=== PATIENT | male | born 1960 | race Caucasian/White ===

== ENCOUNTER 2018-03-14 07:51 | Day surgery (SDC) | payer BC, OTHER ==
[2018-03-07 10:10] LABS: APPEARANCE,URINE CLEAR; BILIRUBIN,URINE NEGATIVE (NEGATIVE); COLOR,URINE YELLOW; GLUCOSE, URINE >=500 mg/dL (NEGATIVE); KETONES,URINE NEGATIVE (NEGATIVE); LEUKOCYTE ESTERASE,URINE NEGATIVE (NEGATIVE); NITRITE,URINE NEGATIVE (NEGATIVE); PROTEIN,URINE NEGATIVE (NEGATIVE); UROBILINOGEN,URINE NEGATIVE mg/dL (<2.0)
--- NOTE | 2018-03-07 10:17 | RADIOLOGY REPORT (SQ) ---
EXAM DESCRIPTION: CHEST PA/LATERAL COMPLETED DATE/TIME: 03/07/2018 10:09 am REASON FOR STUDY: PRE-OP COMPARISON: None. EXAM PARAMETERS: NUMBER OF VIEWS: two views TECHNIQUE: Digital Frontal and Lateral radiographic views of the chest acquired. RADIATION DOSE: NA LIMITATIONS: none FINDINGS: LUNGS AND PLEURA: No opacities, masses or pneumothorax. No pleural effusion. MEDIASTINUM AND HILAR STRUCTURES: No masses or contour abnormalities. HEART AND VASCULAR STRUCTURES: Heart normal size. No evidence for failure. BONES: No acute findings. HARDWARE: None in the chest. OTHER: No other significant finding. IMPRESSION: NO SIGNIFICANT RADIOGRAPHIC FINDING IN THE CHEST. TECHNICAL DOCUMENTATION: JOB ID: [id number] [employer]- All Rights Reserved Reading location - IP/workstation name: [email or web address]
[2018-03-07 10:24] LABS: HEMATOCRIT 52.7 % (37.9-51.0); HEMOGLOBIN 18.4 g/dL (13.5-17.0); MEAN CORPUSCULAR HEMOGLOBIN 31.2 pg (27.0-33.4); MEAN CORPUSCULAR HGB CONC 34.9 g/dL (32.0-36.0); MEAN CORPUSCULAR VOLUME 89 fl (80-97); PLATELET COUNT 202 10^3/uL (150-450); RED CELL DISTRIBUTION WIDTH 13.3 % (11.5-14.0); WHITE BLOOD COUNT 10.3 10^3/uL (4.0-10.5)
[2018-03-07 10:40] LABS: ANION GAP 15 (5-19); BLOOD UREA NITROGEN 12 mg/dL (7-20); CALCIUM 9.7 mg/dL (8.4-10.2); CARBON DIOXIDE 27 mmol/L (22-30); CHLORIDE 97 mmol/L (98-107); GLUCOSE 255 mg/dL (75-110); POTASSIUM 4.6 mmol/L (3.6-5.0); SODIUM 138.8 mmol/L (137-145)
--- NOTE | 2018-03-07 15:48 | EKG REPORT ---
SEVERITY:- NORMAL ECG - SINUS RHYTHM : Confirmed by: Sridevi Sauer MD 07-Mar-2018 15:47:17
[~2018-03-14 07:51] MED LIST: CEFAZOLIN 2 GM/D5W RTU 2 GM/50 ML RTUPB IV PRN; LACTATED RINGERS 1000 ML IV PRN; LIDOCAINE 0.5% INJ-PF (5 MG/ML) 50 ML SDV SUBCUT PRN; LIDOCAINE 1%/EPINEPHRINE INJ 20 ML VIAL ONE
[2018-03-14] MEDS ORDERED: CEFAZOLIN INJ 1 GM VIAL ONE (08:17)
[2018-03-14] MEDS ORDERED: CLINDAMYCIN 600 MG/D5W RTU 600 MG/50 ML RTUPB IV ONE (08:36)
[2018-03-14] MEDS ORDERED: FENTANYL CITRATE INJ/PF 100 MCG/2 ML AMPUL ONE (08:37)
[2018-03-14] MEDS ORDERED: PROPOFOL INJ 200 MG/20 ML VIAL IV ONE (08:37)
[2018-03-14] MEDS ORDERED: MIDAZOLAM 2 MG/2 ML INJ ONE (08:37)
[2018-03-14] MEDS ORDERED: ONDANSETRON HCL INJ/PF 4 MG/2 ML SDV ONE (08:37)
[2018-03-14] MEDS ORDERED: BUPIVACAINE HCL 0.5 % INJ/PF 30 ML SDV ONE (08:45)
[2018-03-14] MEDS ORDERED: MEPERIDINE HCL/PF INJ 25 MG/1 ML DISP.SYRIN IV PRN (09:16)
[2018-03-14] MEDS ORDERED: MORPHINE SULFATE 10 MG/ML INJ IV PRN (09:16)
[2018-03-14] MEDS ORDERED: DIPHENHYDRAMINE HCL 50 MG/ML VIAL IV PRN (09:16)
[2018-03-14] MEDS ORDERED: FENTANYL CITRATE INJ/PF 100 MCG/2 ML AMPUL IV PRN ×3 (09:16)
[2018-03-14] MEDS ORDERED: PROMETHAZINE HCL INJ 25 MG/1 ML VIAL IV PRN (09:16)
--- NOTE | 2018-03-14 09:33 | Discharge Summary ---
Discharge Summary (SDC) - Discharge Final Diagnosis: Right medial meniscal tear Date of Surgery: 03/14/18 Discharge Date: 03/14/18 Condition: Good Forms: ASU Anesthesia D/C Instruction, Discharge POC-Surgical Service Treatment or Instructions: Removed compressive wrap on Monday. Leave underlying OpSite dressing in place until you return to the office. Prescriptions: Oxycodone HCl/Acetaminophen [Percocet 5-325 mg Tablet] 1 tab PO Q6 PRN #40 tab PRN Reason: Referrals: MAGGIE ZAVALA MD [ACTIVE STAFF] - 03/29/18 9:00 am Discharge Diet: As Tolerated, Regular Respiratory Treatments at Home: Deep Breathing/Coughing Discharge Activity: Activity As Tolerated, Balance Activity w/Rest, No tub bath Home Care Assistance: None Needed Report the Following to Your Physician Immediately: Shortness of Breath, Fever over 101 Degrees, Drainage-Foul Smelling
--- NOTE | 2018-03-14 09:36 | Operative Report ---
Operative Report DATE OF SURGERY: 03/14/18 PREOPERATIVE DIAGNOSIS: Right medial meniscal tear POSTOPERATIVE DIAGNOSIS: Right medial meniscal tear. Chondral lesion medial femoral condyle. ACL tear. Loose body. Lateral meniscal tear. 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 The knee is insufflated with a combination of Marcaine, Xylocaine, and epinephrine. Subsequent medial lateral infrapatellar portals are created for the introduction of arthroscope and debridements mentation. Findings as above. Using combination of basket Dalton , mechanical shaver, electric frequency ablation probe a partial medial meniscectomy was performed from approximately 12:00 to 5:00 on the face of the dial. Of note is a large, 1-1/2 cm, chondral lesion on the weightbearing part of the medial femoral condyle. The cartilage is flaking off and this is debrided using a mechanical shaver to solid underlying tissue. The ACL is next examined and is clearly torn. Edges of this are debrided. A loose body is found over in the anterior lateral compartment of the knee and this is retrieved using a grabber. Lastly a lateral meniscectomy was performed from approximately 6:00 to 10:00 on the face of the dial using mechanical gabriella and electric frequency ablation probe. Instrumentation was removed. Portals reapproximation of the nylon. A sterile compressive dressing was applied. The patient was returned to PACU in satisfactory condition.
[2018-03-14] MEDS: FENTANYL CITRATE INJ/PF 100 MCG/2 ML AMPUL ONE ×2 (09:51→09:56)
[2018-03-14] MEDS ORDERED: ACETAMINOPHEN 1,000 MG/100 ML RTUPB IV ONE ×2 (10:22→11:00)
[2018-03-14] MEDS ORDERED: OXYCODONE-ACETAMINOPHEN 5-325 MG TABLET PO ONE (10:30)
[2018-03-14 15:23] VITALS: BP 125/78
== END 2018-03-14 11:30 | disposition home or self-care (01) ==
LOC: OROUT 07:51
PROVIDERS: ATTEND Orthopaedic Surgery
DX: M23.303 Other meniscus derangements, unspecified medial meniscus, right knee (principal); M23.41 Loose body in knee, right knee; F17.210 Nicotine dependence, cigarettes, uncomplicated; F12.90 Cannabis use, unspecified, uncomplicated; I10 Essential (primary) hypertension; M19.90 Unspecified osteoarthritis, unspecified site; E11.9 Type 2 diabetes mellitus without complications; I25.2 Old myocardial infarction; Z88.1 Allergy status to other antibiotic agents; Z01.818 Encounter for other preprocedural examination; Z79.84 Long term (current) use of oral hypoglycemic drugs; Z79.899 Other long term (current) drug therapy
CPT/HCPCS: 29881; G0289; 1400; 36415; 71046; 80048; 81001; 82962; 83036; 85027; 88304; 88311; 93005; 93010; J0131; J0690; J2250; J2405; J2704; J3010; J3490

== ENCOUNTER 2020-02-09 15:46 | Inpatient (IN) | payer OTHER ==
--- NOTE | 2020-02-09 15:57 | ER Document Report ---
ED Medical Screen (RME) - General Chief Complaint: Abdominal Pain Stated Complaint: ABDOMINAL PAIN Time Seen by Provider: 02/09/20 15:53 Primary Care Provider: PETER,PAOLO [Primary Care Provider] - Follow up as needed Mode of Arrival: Wheelchair Information source: Patient Notes: 59-year-old male presented to ED for lower left abdominal pain is Monday. He states he has had a history of diverticulitis. He states it feels similar to that now. No nausea vomiting or fevers. He states he just has excruciating lower abdominal pain. He states last time he had a bout of diverticulitis was in June. He just returned from [facility]. He has a smoker's cough but no other cough. He does not have any change in sense of smell. The only thing he has is the abdominal pain. I have greeted and performed a rapid initial assessment of this patient. A comprehensive ED assessment and evaluation of the patient, analysis of test results and completion of medical decision making process will be conducted by an additional ED providers. TRAVEL OUTSIDE OF THE [place] IN LAST 30 DAYS: No - HPI Onset: Other Onset/Duration: Waxing and waning - Related Data Allergies/Adverse Reactions: cephalexin [From Keflex] Adverse Reaction (Verified 03/05/18 16:51) RASH, SWELLING Past Medical History - Past Medical History Cardiac Medical History: Reports: Hx Coronary Artery Disease - STENT, Hx Hypertension Denies: Hx Heart Attack Pulmonary Medical History: Denies: Hx Asthma, Hx Bronchitis, Hx COPD, Hx Pneumonia Neurological Medical History: Denies: Hx Cerebrovascular Accident, Hx Seizures Musculoskeltal Medical History: Reports Hx Arthritis - RIGHT KNEE,BACK - Immunizations Hx Diphtheria, Pertussis, Tetanus Vaccination: Yes Doctor's Discharge - Discharge Referrals: [facility] [[facility]] - Follow up as needed
[2020-02-09] MEDS ORDERED: HYDROCODONE/ACETAMINOPHEN 5-325 MG TABLET PO ONE (15:59)
[2020-02-09] MEDS ORDERED: ONDANSETRON 4 MG TAB.RAPDIS PO ONE (15:59)
[2020-02-09 16:37] LABS: ABSOLUTE BASOPHILS # (AUTO) 0.1 10^3/uL (0.0-0.2); ABSOLUTE EOSINOPHILS # (AUTO) 0.1 10^3/uL (0.0-0.6); ABSOLUTE LYMPHOCYTES (AUTO) 1.3 10^3/uL (0.5-4.7); ABSOLUTE MONOCYTES (AUTO) 2.1 10^3/uL (0.1-1.4); ABSOLUTE NEUT (AUTO) 9.8 10^3/uL (1.7-8.2); BASOPHILS % (AUTO) 0.4 % (0-2); EOSINOPHILS % (AUTO) 0.4 % (0-6); HEMATOCRIT 49.5 % (37.9-51.0); HEMOGLOBIN 17.2 g/dL (13.5-17.0); LYMPHOCYTES % (AUTO) 10.1 % (13-45); MEAN CORPUSCULAR HEMOGLOBIN 30.1 pg (27.0-33.4); MEAN CORPUSCULAR HGB CONC 34.8 g/dL (32.0-36.0); MEAN CORPUSCULAR VOLUME 87 fl (80-97); MONOCYTES % (AUTO) 15.7 % (3-13); PLATELET COUNT 199 10^3/uL (150-450); RED BLOOD COUNT 5.72 10^6/uL (4.35-5.55); RED CELL DISTRIBUTION WIDTH 13.7 % (11.5-14.0); SEGMENTED NEUTROPHILS % (AUTO) 73.4 % (42-78); TOTAL CELLS COUNTED % (AUTO) 100 %; WHITE BLOOD COUNT 13.3 10^3/uL (4.0-10.5)
[2020-02-09 16:55] LABS: ALBUMIN 4.3 g/dL (3.5-5.0); ALKALINE PHOSPHATASE 104 U/L (38-126); ANION GAP 11 (5-19); APPEARANCE,URINE CLEAR; ASPARTATE AMINO TRANSFERASE 27 U/L (17-59); BILIRUBIN,DIRECT 0.4 mg/dL (0.0-0.4); BILIRUBIN,TOTAL 1.3 mg/dL (0.2-1.3); BILIRUBIN,URINE NEGATIVE (NEGATIVE); BLOOD UREA NITROGEN 21 mg/dL (7-20); CALCIUM 9.5 mg/dL (8.4-10.2); CARBON DIOXIDE 24 mmol/L (22-30); CHLORIDE 95 mmol/L (98-107); COLOR,URINE YELLOW; GLUCOSE 342 mg/dL (75-110); GLUCOSE, URINE >=500 mg/dL (NEGATIVE); KETONES,URINE TRACE mg/dL (NEGATIVE); LEUKOCYTE ESTERASE,URINE NEGATIVE (NEGATIVE); NITRITE,URINE NEGATIVE (NEGATIVE); POTASSIUM 4.6 mmol/L (3.6-5.0); PROTEIN,URINE 30 mg/dL (NEGATIVE); TOTAL PROTEIN 6.8 g/dL (6.3-8.2); URINE SPECIFIC GRAVITY 1.035
[2020-02-09] MEDS ORDERED: NORMAL SALINE 1000 ML 1,000 ML IV ONE (20:51)
[2020-02-09] MEDS ORDERED: ONDANSETRON HCL INJ/PF 4 MG/2 ML SDV IV ONE (21:10)
[2020-02-09] MEDS ORDERED: HYDROMORPHONE HCL INJ/PF 2 MG/ML AMPULE IV ONE ×2 (21:10→22:50)
--- NOTE | 2020-02-09 21:10 | ER Document Report ---
ED GI/ - General Chief Complaint: Abdominal Pain Stated Complaint: ABDOMINAL PAIN Time Seen by Provider: 02/09/20 15:53 Mode of Arrival: Wheelchair TRAVEL OUTSIDE OF THE [place] IN LAST 30 DAYS: No - HPI Notes: 02/09/20 23:10 Patient is a 59-year-old male with a past medical history of diabetes and hypertension who presents with abdominal pain. Patient states symptoms began on Monday and are worsening. Pain is in the suprapubic area. He denies any diarrhea but states he has had a small amount of hard stool that is nonbloody. No urinary symptoms. No nausea or vomiting. Patient states he does have a decreased appetite. No fevers or chills. He has a history of diverticulitis and normally gets antibiotics. - Related Data Allergies/Adverse Reactions: latex Allergy (Verified 02/09/20 15:58) cephalexin [From Keflex] Adverse Reaction (Verified 02/09/20 15:58) RASH, SWELLING Past Medical History - General Information source: Patient - Social History Smoking Status: Former Smoker Chew tobacco use (# tins/day): No Frequency of alcohol use: None Drug Abuse: None Family History: Reviewed & Not Pertinent - Past Medical History Cardiac Medical History: Reports: Hx Coronary Artery Disease - STENT, Hx Hypertension Denies: Hx Heart Attack Pulmonary Medical History: Denies: Hx Asthma, Hx Bronchitis, Hx COPD, Hx Pneumonia Neurological Medical History: Denies: Hx Cerebrovascular Accident, Hx Seizures Musculoskeletal Medical History: Reports Hx Arthritis - RIGHT KNEE,BACK - Immunizations Hx Diphtheria, Pertussis, Tetanus Vaccination: Yes Review of Systems - Review of Systems Notes: CONSTITUTIONAL: No fever, fatigue or weight loss. SKIN: No rash. HENT: No congestion, ear pain, or sore throat. EYES: No recent vision problems or eye pain. ENDOCRINE: No thyroid problems. No polyuria or polydipsia. CARDIOVASCULAR: No chest pain or edema. RESPIRATORY: No cough, shortness of breath, congestion, or wheezing. GASTROINTESTINAL: Positive for abdominal pain. No nausea or vomiting. GENITOURINARY: No dysuria. MUSCULOSKELETAL: No joint pain or swelling. LYMPHATIC: No swollen glands. NEUROLOGIC: No seizures. No headache, focal weakness or sensory changes. HEMATOLOGIC: No unusual bruising or bleeding. PSYCHIATRIC: No depression or anxiety. Physical Exam - Vital signs Vitals: Temp Pulse Resp BP Pulse Ox 97.7 F 96 20 131/92 H 100 02/09/20 15:53 02/09/20 15:53 02/09/20 15:53 02/09/20 15:53 02/09/20 15:53 - General General appearance: Appears well Notes: VITAL SIGNS: Within normal limits. GENERAL: No acute distress, non-toxic appearance. HEAD: Normal with no signs of head trauma. EYES: EOMI, conjunctiva normal, no discharge. EARS: Hearing grossly intact. NOSE: Normal. THROAT: Oropharynx is normal. NECK: Normal range of motion, no tenderness, supple, no lymphadenopathy, No adenopathy, no JVD. CHEST: Clear breath sounds bilaterally. No wheezes, rales, or rhonchi. CARDIAC: Regular rate and rhythm. S1 and S2, without murmurs, gallops, or rubs. VASCULAR: No Edema. Peripheral pulses normal and equal in all extremities. ABDOMEN: Discomfort to suprapubic palpation. No guarding. GASTROINTESTINAL: Bowel sounds normal GENITOURINARY: Normal, No tenderness LYMPATHTIC: No lymphadenopathy noted. MUSCULOSKELETAL: Good range of motion of all major joints. Extremities without clubbing, cyanosis or edema. NEUROLOGICAL: Alert and oriented x 3. No focal sensory or strength deficits. Speech normal. Follows commands appropriately. PSYCHIATRIC: Normal Affect, judgement and mood. SKIN: Normal appearance with no rashes or lesions. Course - Re-evaluation Re-evalutation: 02/09/20 23:13 Patient has diverticulitis with concern for possible abscess. I did discuss with the on-call surgeon who stated this is not surgical. He recommended patient be admitted to the hospitalist for medical management. I did discuss with the patient and his and they are in agreement. States that pain is significant and he is getting IV pain medication for that. He will also be given Zosyn. I discussed with hospitalist who will admit the patient to his service. 02/10/20 01:05 - Vital Signs Vital signs: Temp Pulse Resp BP Pulse Ox 98.5 F 95 18 138/90 H 95 02/10/20 01:04 02/10/20 01:04 02/10/20 01:04 02/10/20 01:04 02/10/20 01:04 - Laboratory Result Diagrams: 02/09/20 16:04 02/09/20 16:04 Laboratory results interpreted by me: 02/09/20 02/09/20 02/09/20 16:04 16:04 16:04 WBC 13.3 H RBC 5.72 H Hgb 17.2 H Lymph % (Auto) 10.1 L Redwood % (Auto) 15.7 H Absolute Neuts (auto) 9.8 H Absolute Monos (auto) 2.1 H Sodium 130.3 L Chloride 95 L BUN 21 H Glucose 342 H POC Glucose Urine Protein 30 H Urine Glucose (UA) >=500 H Urine Ketones TRACE H Urine Blood SMALL H Urine Urobilinogen 2.0 H 02/09/20 02/09/20 16:16 18:56 WBC RBC Hgb Lymph % (Auto) Redwood % (Auto) Absolute Neuts (auto) Absolute Monos (auto) Sodium Chloride BUN Glucose POC Glucose 365 H 265 H Urine Protein Urine Glucose (UA) Urine Ketones Urine Blood Urine Urobilinogen - Diagnostic Test Radiology reviewed: Image reviewed, Reports reviewed Discharge - Discharge Clinical Impression: Diverticulitis Abdominal pain Qualifiers: Abdominal location: lower abdomen, unspecified Qualified Code(s): R10.30 - Lower abdominal pain, unspecified Condition: Stable Disposition: ADMITTED INPATIENT Admitting Provider: [facility] Unit Admitted: Medical Floor
--- NOTE | 2020-02-09 22:07 | RADIOLOGY REPORT (SQ) ---
CT ABDOMEN PELVIS WITH IV CONTRAST HISTORY: Left lower quadrant pain. COMPARISON: None. TECHNIQUE: CT scan of the abdomen and pelvis was performed with IV contrast. This exam was performed according to our departmental dose-optimization program, which includes automated exposure control, adjustment of the mA and/or kV according to patient size and/or use of iterative reconstruction technique. FINDINGS: The lung bases are clear. No pleural or pericardial effusions. There is no hiatal hernia. There is diffuse hepatic steatosis. The gallbladder, spleen, pancreas, adrenal glands, and kidneys are unremarkable. No urinary stones or hydronephrosis. The pelvic organs are unremarkable. There is diffuse wall thickening with surrounding inflammatory stranding and multiple diverticula within the sigmoid colon. There is suggestion of multiple rim-enhancing fluid collections within the sigmoid wall measuring up to 3.6 x 3.2 cm. The stomach, appendix, and small bowel are normal. There are bilateral pars defects at L5-S1 with grade 1 anterolisthesis. The aorta is normal caliber. Evidence of prior ventral hernia repair. IMPRESSION: 1. Acute sigmoid diverticulitis with phlegmonous changes/abscess within the sigmoid wall. 2. No free air or intraperitoneal abscess is seen.
[2020-02-09] MEDS ORDERED: PIPERACILLIN/TAZOBACTAM 3.375 GM VIAL IV ONE (22:49)
[2020-02-09] MEDS ORDERED: ONDANSETRON HCL INJ/PF 4 MG/2 ML SDV IV PRN (23:59)
[2020-02-10] MEDS ORDERED: DEXTROSE 40% GEL 15 GM TUBE PO PRN ×2 (00:08)
[2020-02-10] MEDS ORDERED: DEXTROSE 50%-WATER 25 GM/50 ML DISP.SYRIN IV PRN ×2 (00:08)
[2020-02-10] MEDS ORDERED: GLUCAGON,HUMAN RECOMB 1 MG INJ IM PRN (00:08)
[2020-02-10] MEDS ORDERED: MORPHINE SULFATE 10 MG/ML INJ IV PRN (00:13)
[2020-02-10] MEDS ORDERED: PIPERACILLIN/TAZOBACTAM 3.375 GM VIAL IV PRN (00:15)
--- NOTE | 2020-02-10 00:19 | PDOC H&P ---
History of Present Illness Admission Date/PCP: [facility] 02/10/2020 Patient complains of: Lower abdominal pain History of Present Illness: RIK ARIZA is a 59 year old male with a history of hypertension and diabetes who presents with a 2 days duration of left lower quadrant abdominal pain which he describes as cramping, 10/10 in intensity at its worst, nonradiating with no clear aggravating or relieving factor. Patient also endorses 2 episodes of vomiting of ingested matter this afternoon. He states that he was treated for diverticulitis about 6 months ago after he presented with similar symptoms. He denies fever, chills, dizziness/lightheadedness, diarrhea, hematemesis, melena or hematochezia. He reports excessive thirst and he states that he feels like his mouth is dry. He denies any dysuria, frequency of urination, urgency. He denies any cough, chest pain, shortness of breath, palpitations. Past Medical History Cardiac Medical History: Reports: Coronary Artery Disease - STENT, Hypertension Denies: Myocardial Infarction Pulmonary Medical History: Denies: Asthma, Bronchitis, Chronic Obstructive Pulmonary Disease (COPD), Pneumonia Neurological Medical History: Denies: Seizures Musculoskeltal Medical History: Reports: Arthritis - RIGHT KNEE,BACK Hematology: Denies: Anemia Social History Information Source: Patient Smoking Status: Former Smoker Electronic Cigarette use?: No Hx Recreational Drug Use: Yes Drugs: Marijuana - Advance Directive Resuscitation Status: Full Code Family History Parental Family History Reviewed: Yes Children Family History Reviewed: Yes Sibling(s) Family History Reviewed.: Yes Medication/Allergy Home Medications: Amlodipine Besylate [Norvasc 10 mg Tablet] 10 mg PO DAILY 03/13/18 Clopidogrel Bisulfate [Plavix] 75 mg PO DAILY 03/13/18 Glipizide [Glipizide Xl] 10 mg PO BID 03/13/18 Lisinopril [Zestril] 40 mg PO DAILY 03/13/18 Pantoprazole Sodium 40 mg PO DAILY 03/13/18 Propranolol HCl [Inderal Xl] 80 mg PO DAILY 03/13/18 Saxagliptin HCl [Onglyza] 5 mg PO DAILY 03/13/18 Oxycodone HCl/Acetaminophen [Percocet 5-325 mg Tablet] 1 tab PO Q6 PRN #40 tab 03/14/18 Allergies/Adverse Reactions: morphine Allergy (Mild, Verified 02/10/20 01:08) itching latex Allergy (Verified 02/09/20 15:58) cephalexin [From Keflex] Adverse Reaction (Verified 02/09/20 15:58) RASH, SWELLING Review of Systems Constitutional: ABSENT: chills, fever(s), headache(s), weight gain, weight loss Eyes: ABSENT: visual disturbances Ears: ABSENT: hearing changes Nose, Mouth, and Throat: ABSENT: as per HPI, headache(s), mouth pain, sore throat, vertigo, other Cardiovascular: ABSENT: chest pain, dyspnea on exertion, edema, orthropnea, palpitations Respiratory: ABSENT: cough, hemoptysis Gastrointestinal: PRESENT: as per HPI Genitourinary: ABSENT: dysuria, hematuria Musculoskeletal: ABSENT: joint swelling Integumentary: ABSENT: rash, wounds Neurological: ABSENT: abnormal gait, abnormal speech, confusion, dizziness, focal weakness, syncope Psychiatric: ABSENT: anxiety, depression, homidical ideation, suicidal ideation Endocrine: ABSENT: cold intolerance, heat intolerance, polydipsia, polyuria Hematologic/Lymphatic: ABSENT: easy bleeding, easy bruising Physical Exam Vital Signs: Temp Pulse Resp BP Pulse Ox 97.8 F 95 17 134/80 H 99 02/09/20 21:20 02/09/20 21:20 02/09/20 21:20 02/09/20 21:20 02/09/20 21:20 Intake & Output 02/08/20 02/09/20 02/10/20 06:59 06:59 06:59 Intake Total 1000 Balance 1000 Weight 89 kg Additional comments: GENERAL APPEARANCE: In no acute distress, alert and oriented x4 HEENT: Normocephalic and atraumatic. No scleral icterus. Moist oral mucosa NECK: Supple. No evidence of thyroid enlargement. No lymphadenopathy or tenderness. No JVD CHEST: Symmetric. Nontender to palpation. LUNGS: Breath sounds are equal and clear bilaterally. No wheezes, rhonchi, or rales. HEART: Regular rate and rhythm with normal S1 and S2. No murmurs, gallops, or rubs. ABDOMEN: Full, soft, positive bowel sounds, mild tenderness on the left lower quadrant area, but no rebound dullness or rigidity EXTREMITIES: No cyanosis, clubbing, or edema. MUSCULOSKELETAL: No deformity, atrophy or swelling noted PSYCHIATRIC: Recent and remote memory is intact. Appropriate mood and affect. SKIN: Warm, dry, and well perfused. No lesions or rashes are noted. NEUROLOGIC: No focal sensory or motor deficits are noted. Results Laboratory Results: 02/09/20 16:04 02/09/20 16:04 02/09/20 02/09/20 02/09/20 16:04 16:04 16:04 WBC 13.3 H RBC 5.72 H Hgb 17.2 H Hct 49.5 MCV 87 MCH 30.1 MCHC 34.8 RDW 13.7 Plt Count 199 Seg Neutrophils % 73.4 Sodium 130.3 L Potassium 4.6 Chloride 95 L Carbon Dioxide 24 Anion Gap 11 BUN 21 H Creatinine 0.88 Est GFR ( Amer) > 60 Glucose 342 H Lactic Acid Calcium 9.5 Total Bilirubin 1.3 AST 27 Alkaline Phosphatase 104 Total Protein 6.8 Albumin 4.3 Urine Color YELLOW Urine Appearance CLEAR Urine pH 5.0 Ur Specific Stella 1.035 Urine Protein 30 H Urine Glucose (UA) >=500 H Urine Ketones TRACE H Urine Blood SMALL H Urine Nitrite NEGATIVE Ur Leukocyte Esterase NEGATIVE Urine WBC (Auto) 1 Urine RBC (Auto) 1 02/09/20 23:04 WBC RBC Hgb Hct MCV MCH MCHC RDW Plt Count Seg Neutrophils % Sodium Potassium Chloride Carbon Dioxide Anion Gap BUN Creatinine Est GFR ( Amer) Glucose Lactic Acid 1.1 Calcium Total Bilirubin AST Alkaline Phosphatase Total Protein Albumin Urine Color Urine Appearance Urine pH Ur Specific Stella Urine Protein Urine Glucose (UA) Urine Ketones Urine Blood Urine Nitrite Ur Leukocyte Esterase Urine WBC (Auto) Urine RBC (Auto) Impressions: Abdomen/Pelvis CT 02/09/20 20:49 IMPRESSION: 1. Acute sigmoid diverticulitis with phlegmonous changes/abscess within the sigmoid wall. 2. No free air or intraperitoneal abscess is seen. Assessment and Plan - Diagnosis (1) Diverticulitis Is this a current diagnosis for this admission?: Yes Plan: Patient presents with lower abdominal pain Has a history of recurrent diverticulitis in the past Has leukocytosis of 13.3k, no other signs of systemic toxicity CT abdomen showed acute sigmoid diverticulitis with phlegmonous change/abscess measuring 3.2 x 3.6 cm but no sign of perforation Surgery on board and recommended medical management Continue Zosyn Kept him n.p.o. 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 Will control pain with as needed Dilaudid Colonoscopy 6 weeks after discharge as outpatient to rule out malignancy (2) Hyperglycemia Is this a current diagnosis for this admission?: Yes Plan: Patient on glipizide and saxagliptin as outpatient We will hold outpatient medication for now Sliding scale, Accu-Chek and hypoglycemia protocol (3) Hyponatremia Is this a current diagnosis for this admission?: Yes Plan: Serum sodium 130, corrected for glucose 134 Likely due to volume depletion from poor oral intake Will optimally controlled blood sugar and hydrate, follow BMP (4) Leukocytosis Is this a current diagnosis for this admission?: Yes Plan: Likely due to diverticulitis Will treat underlying cause (5) Hypertension Is this a current diagnosis for this admission?: Yes Plan: Will resume patient's home medication(amlodipine milligram and lisinopril 40 mg) (6) Diabetes Is this a current diagnosis for this admission?: Yes Plan: Presented with hyperglycemia Ordered A1c for a.m. Sliding scale, Accu-Chek and hypoglycemia protocol - Time Time Spent with patient: 35 or more minutes Total Critical Time (Minutes): 45 Medications reviewed and adjusted accordingly: Yes Anticipated Discharge Disposition: Home, Self Care Anticipated Discharge Timeframe: within 72 hours - Inpatient Certification Medical Necessity: Need Close Monitoring Due to Risk of Patient Decompensation, Need For IV Fluids, Need for IV Antibiotics
[2020-02-10] MEDS: INSULIN REG, HUMAN 100 UNIT/ML 3 ML VIAL (PYX) SUBCUT SCH ×2 (01:16→08:04)
[2020-02-10] MEDS: HYDROMORPHONE HCL INJ/PF 2 MG/ML AMPULE IV PRN ×6 (01:48→20:38)
[2020-02-10] MEDS: NORMAL SALINE 1000 ML 1,000 ML IV PRN ×2 (02:54→13:30)
[2020-02-10] MEDS ORDERED: PIPERACILLIN/TAZOBACTAM 3.375 GM VIAL IV ONE (04:48)
[2020-02-10] MEDS: PIPERACILLIN SODIUM/TAZOBACTAM 3.375 GM in NORMAL SALINE 100 ML IV SCH ×3 (05:38→18:55)
[2020-02-10 07:03] LABS: ABSOLUTE EOSINOPHILS # (AUTO) 0.1 10^3/uL (0.0-0.6); ABSOLUTE LYMPHOCYTES (AUTO) 0.9 10^3/uL (0.5-4.7); ABSOLUTE MONOCYTES (AUTO) 2.3 10^3/uL (0.1-1.4); BASOPHILS % (AUTO) 0.3 % (0-2); EOSINOPHILS % (AUTO) 0.6 % (0-6); HEMATOCRIT 45.1 % (37.9-51.0); HEMOGLOBIN 15.6 g/dL (13.5-17.0); LYMPHOCYTES % (AUTO) 6.9 % (13-45); MEAN CORPUSCULAR HGB CONC 34.6 g/dL (32.0-36.0); MEAN CORPUSCULAR VOLUME 87 fl (80-97); MONOCYTES % (AUTO) 16.9 % (3-13); PLATELET COUNT 154 10^3/uL (150-450); RED BLOOD COUNT 5.21 10^6/uL (4.35-5.55); RED CELL DISTRIBUTION WIDTH 13.6 % (11.5-14.0); SEGMENTED NEUTROPHILS % (AUTO) 75.3 % (42-78); TOTAL CELLS COUNTED % (AUTO) 100 %; WHITE BLOOD COUNT 13.3 10^3/uL (4.0-10.5)
[2020-02-10 07:31] LABS: ANION GAP 12 (5-19); BLOOD UREA NITROGEN 13 mg/dL (7-20); CALCIUM 8.6 mg/dL (8.4-10.2); CARBON DIOXIDE 21 mmol/L (22-30); CHLORIDE 98 mmol/L (98-107); GLUCOSE 191 mg/dL (75-110)
[2020-02-10] MEDS: ENOXAPARIN SODIUM INJ 40 MG/0.4 ML DISP.SYRIN SUBCUT SCH (10:30)
--- NOTE | 2020-02-10 11:31 | PDOC CONSULTATION ---
Consultation Consult Date: 02/10/20 Attending physician:: ASHLEY LEVINE Provider Consulted: [facility] [place] Consult reason:: Complicated diverticulitis History of Present Illness Admission Date/PCP: 02/10/20 00:[facility] History of Present Illness: RIK ARIZA is a 59 year old male Presents emergency department with several day history of abdominal pain, cramping, decreased bowel function. Patient was found to have pelvic tenderness, leukocytosis and CT scan findings consistent with extensive diverticulitis of the sigmoid colon with retrocolonic abscess. Surgery was consulted for management. Patient is admitted to the hospitalist service for hydration, n.p.o. and intravenous antibiotics. Patient has a long history of recurrent diverticulitis, hospitalized several times at [facility]. He has been offered surgical resection but is refused. [facility], showing divert[facility] disease only. Patient lives in [facility], came to [facility] last night because he does not like [facility]. Overnight patient has felt some better. Of note patient has a history of chronic narcotic use. Past Medical History Past Medical History: COPD, diabetes mellitus, smoking history, coronary artery disease with stent placement, chronic pain management sciatica, alcohol abuse, under contract with [facility] for oral and percutaneous injections Cardiac Medical History: Reports: Coronary Artery Disease - STENT, Hypertension Denies: Myocardial Infarction Pulmonary Medical History: Denies: Asthma, Bronchitis, Chronic Obstructive Pulmonary Disease (COPD), Pneumonia Neurological Medical History: Denies: Seizures GI Medical History: Reports: Gastroesophageal Reflux Disease Musculoskeltal Medical History: Reports: Arthritis - RIGHT KNEE,BACK Psychiatric Medical History: Denies: Depression Hematology: Denies: Anemia Past Surgical History Past Surgical History: History of a knee surgery, colonoscopy Social History Information Source: Patient Smoking Status: Former Smoker Electronic Cigarette use?: No Frequency of Alcohol Use: Occasional Hx Recreational Drug Use: Yes Drugs: Marijuana - Advance Directive Resuscitation Status: Full Code Family History Family History: None, Reviewed & Not Pertinent Parental Family History Reviewed: No Children Family History Reviewed: No Sibling(s) Family History Reviewed.: No Medication/Allergy Home Medications: Amlodipine Besylate [Norvasc 10 mg Tablet] 10 mg PO DAILY 03/13/18 Glipizide [Glipizide Xl] 10 mg PO BID 03/13/18 Lisinopril [Zestril] 40 mg PO DAILY 03/13/18 Pantoprazole Sodium 40 mg PO DAILY 03/13/18 Aspirin [Ecotrin 81 mg EC Tablet] 81 mg PO DAILY 02/10/20 Cholecalciferol (Vitamin D3) [Vitamin D3] 125 mcg PO DAILY 02/10/20 Propranolol HCl [Inderal 40 Mg Tablet] 80 mg PO DAILY 02/10/20 Allergies/Adverse Reactions: morphine Allergy (Mild, Verified 02/10/20 01:08) itching latex Allergy (Verified 02/09/20 15:58) cephalexin [From Keflex] Adverse Reaction (Verified 02/09/20 15:58) RASH, SWELLING Review of Systems Constitutional: PRESENT: as per HPI Eyes: PRESENT: other - Disconjugate gaze Cardiovascular: ABSENT: chest pain, dyspnea on exertion, edema, orthropnea, palpitations Respiratory: PRESENT: other - Chronic cough, Genitourinary: ABSENT: dysuria, hematuria Musculoskeletal: PRESENT: other - Chronic back pain Neurological: PRESENT: other - Chronic sciatic symptoms Endocrine: ABSENT: cold intolerance, heat intolerance, polydipsia, polyuria Physical Exam Vital Signs: Temp Pulse Resp BP Pulse Ox 97.6 F 91 22 H 144/89 H 100 02/10/20 07:55 02/10/20 07:55 02/10/20 07:55 02/10/20 07:55 02/10/20 07:55 Intake & Output 02/09/20 02/10/20 02/11/20 06:59 06:59 06:59 Intake Total 1260 Balance 1260 Weight 89.1 kg 89.1 kg General appearance: PRESENT: no acute distress Head exam: PRESENT: normocephalic Eye exam: PRESENT: other - Disconjugate gaze Mouth exam: PRESENT: other - Poor dentition Neck exam: PRESENT: full ROM Respiratory exam: PRESENT: rhonchi Cardiovascular exam: PRESENT: RRR Pulses: PRESENT: normal carotid pulses, normal radial pulses, normal femoral pulses, normal dorsalis pedis pul GI/Abdominal exam: PRESENT: other - Abdomen is soft tender in the suprapubic area to deep palpation, but no rigidity or peritoneal signs. Rectal exam: PRESENT: deferred Extremities exam: PRESENT: full ROM Neurological exam: PRESENT: oriented to person, oriented to place, oriented to time, oriented to situation Psychiatric exam: PRESENT: appropriate affect Results Laboratory Results: 10/26/20 06:00 02/10/20 06:00 02/09/20 02/09/20 02/09/20 16:04 16:04 16:04 WBC 13.3 H RBC 5.72 H Hgb 17.2 H Hct 49.5 MCV 87 MCH 30.1 MCHC 34.8 RDW 13.7 Plt Count 199 Seg Neutrophils % 73.4 Sodium 130.3 L Potassium 4.6 Chloride 95 L Carbon Dioxide 24 Anion Gap 11 BUN 21 H Creatinine 0.88 Est GFR ( Amer) > 60 Glucose 342 H Lactic Acid Calcium 9.5 Total Bilirubin 1.3 AST 27 Alkaline Phosphatase 104 Total Protein 6.8 Albumin 4.3 Urine Color YELLOW Urine Appearance CLEAR Urine pH 5.0 Ur Specific [place] 1.035 Urine Protein 30 H Urine Glucose (UA) >=500 H Urine Ketones TRACE H Urine Blood SMALL H Urine Nitrite NEGATIVE Ur Leukocyte Esterase NEGATIVE Urine WBC (Auto) 1 Urine RBC (Auto) 1 02/09/20 02/10/20 02/10/20 23:04 06:00 06:00 WBC 13.3 H RBC 5.21 Hgb 15.6 Hct 45.1 MCV 87 MCH 30.0 MCHC 34.6 RDW 13.6 Plt Count 154 Seg Neutrophils % 75.3 Sodium 131.4 L Potassium 4.0 Chloride 98 Carbon Dioxide 21 L Anion Gap 12 BUN 13 Creatinine 0.62 Est GFR ( Amer) > 60 Glucose 191 H Lactic Acid 1.1 Calcium 8.6 Total Bilirubin AST Alkaline Phosphatase Total Protein Albumin Urine Color Urine Appearance Urine pH Ur Specific [place] Urine Protein Urine Glucose (UA) Urine Ketones Urine Blood Urine Nitrite Ur Leukocyte Esterase Urine WBC (Auto) Urine RBC (Auto) Impressions: Abdomen/Pelvis CT 02/09/20 20:49 IMPRESSION: 1. Acute sigmoid diverticulitis with phlegmonous changes/abscess within the sigmoid wall. 2. No free air or intraperitoneal abscess is seen. Assessment & Plan - Diagnosis (1) Diverticulitis of large intestine with complication Is this a current diagnosis for this admission?: Yes Plan: Impression: Patient has acute diverticulitis, history of chronic diverticulitis of the sigmoid colon, with retrocolonic pelvic presacral phlegmon. CT scan reviewed; inflammatory phlegmon not amendable to percutaneous drainage. Without peritoneal signs, does not need emergent operation. Documentations: 1. I reviewed patient's history of recurrent diverticular infections, and previous recommendation for him to undergo interval sigmoid colectomy. I agree with that recommendation. Patient is not interested in surgery and is frankly refused it in the past. 2. Ideally patient should undergo a bowel prep, and be offered a single-stage sigmoid resection with primary anastomosis. Again he is not interested. 3. Therefore, in the interim, we will hope that he gets better with IV antibiotics. If he deteriorates, and develops peritonitis, he will need emergent exploration, sigmoid colectomy with colostomy. 4. Since patient is not interested in surgery, we will sign off; reconsult if clinically indicated (6) Abdominal pain Qualifiers: Abdominal location: lower abdomen, unspecified Qualified Code(s): R10.30 - Lower abdominal pain, unspecified (7) Diabetes Is this a current diagnosis for this admission?: Yes
[2020-02-10] MEDS: INSULIN LISPRO 100 UNIT/ML 3 ML VIAL SUBCUT SCH ×2 (12:22→18:59)
--- NOTE | 2020-02-10 13:31 | PDOC PROGRESS REPORT ---
Subjective Progress Note for:: 02/10/20 Subjective:: Patient seen on morning rounds. History of recurrent diverticular infections, with recommendations for surgical intervention which he has repeatedly refused. He complains of lower abdominal pain. He is requesting increase in pain medication. Pt with history of narcotic use. His last bowel movement was 2 days ago. He is currently n.p.o. for bowel rest. He denies fever, chills, dizziness, chest pain, cough, shortness of breath, or diarrhea. Reason For Visit: ACUTE DIVERTICULITIS Physical Exam Vital Signs: Temp Pulse Resp BP Pulse Ox 97.6 F 99 18 125/81 98 02/10/20 10:51 02/10/20 10:51 02/10/20 10:51 02/10/20 10:51 02/10/20 10:51 Intake & Output 02/09/20 02/10/20 02/11/20 06:59 06:59 06:59 Intake Total 1260 Balance 1260 Weight 89.1 kg 89.1 kg General appearance: PRESENT: no acute distress, cooperative, well-developed, well-nourished Head exam: PRESENT: atraumatic, normocephalic Mouth exam: PRESENT: dry mucosa, tongue midline Neck exam: PRESENT: full ROM. ABSENT: tenderness Respiratory exam: PRESENT: clear to auscultation alina, symmetrical, unlabored. ABSENT: retraction, tachypnea, wheezes Cardiovascular exam: PRESENT: RRR, +S1, +S2. ABSENT: diastolic murmur, systolic murmur Pulses: PRESENT: normal radial pulses GI/Abdominal exam: PRESENT: soft, tenderness - Across the lower abdomen.. ABSENT: distended, firm Extremities exam: PRESENT: full ROM. ABSENT: pedal edema Musculoskeletal exam: PRESENT: ambulatory. ABSENT: deformity, dislocation, full ROM Neurological exam: PRESENT: alert, awake, oriented to person, oriented to place, oriented to time, oriented to situation, CN II-XII grossly intact. ABSENT: altered, motor sensory deficit Psychiatric exam: PRESENT: appropriate affect, normal mood Skin exam: PRESENT: dry, intact, warm Results Laboratory Results: 02/10/20 06:00 02/10/20 06:00 02/09/20 02/09/20 02/09/20 16:04 16:04 16:04 WBC 13.3 H RBC 5.72 H Hgb 17.2 H Hct 49.5 MCV 87 MCH 30.1 MCHC 34.8 RDW 13.7 Plt Count 199 Seg Neutrophils % 73.4 Sodium 130.3 L Potassium 4.6 Chloride 95 L Carbon Dioxide 24 Anion Gap 11 BUN 21 H Creatinine 0.88 Est GFR ( Amer) > 60 Glucose 342 H Lactic Acid Calcium 9.5 Total Bilirubin 1.3 AST 27 Alkaline Phosphatase 104 Total Protein 6.8 Albumin 4.3 Urine Color YELLOW Urine Appearance CLEAR Urine pH 5.0 Ur Specific [place] 1.035 Urine Protein 30 H Urine Glucose (UA) >=500 H Urine Ketones TRACE H Urine Blood SMALL H Urine Nitrite NEGATIVE Ur Leukocyte Esterase NEGATIVE Urine WBC (Auto) 1 Urine RBC (Auto) 1 02/09/20 02/10/20 02/10/20 23:04 06:00 06:00 WBC 13.3 H RBC 5.21 Hgb 15.6 Hct 45.1 MCV 87 MCH 30.0 MCHC 34.6 RDW 13.6 Plt Count 154 Seg Neutrophils % 75.3 Sodium 131.4 L Potassium 4.0 Chloride 98 Carbon Dioxide 21 L Anion Gap 12 BUN 13 Creatinine 0.62 Est GFR ( Amer) > 60 Glucose 191 H Lactic Acid 1.1 Calcium 8.6 Total Bilirubin AST Alkaline Phosphatase Total Protein Albumin Urine Color Urine Appearance Urine pH Ur Specific [place] Urine Protein Urine Glucose (UA) Urine Ketones Urine Blood Urine Nitrite Ur Leukocyte Esterase Urine WBC (Auto) Urine RBC (Auto) Impressions: Abdomen/Pelvis CT 02/09/20 20:49 IMPRESSION: 1. Acute sigmoid diverticulitis with phlegmonous changes/abscess within the sigmoid wall. 2. No free air or intraperitoneal abscess is seen. Assessment and Plan - Diagnosis (1) Diverticulitis Is this a current diagnosis for this admission?: Yes Plan: History recurrent diverticulitis. Has refused surgical intervention multiple occasions, including today and discussion with surgery. Leukocytosis of 13.3k. No other signs of systemic toxicity CT abdomen showed acute sigmoid diverticulitis with phlegmonous change/abscess measuring 3.2 x 3.6 cm but no sign of perforation Surgery on board. Note was reviewed. Continue Zosyn Kept him n.p.o. for bowel rest, plan to advance diet tomorrow as tolerated. Will control pain with as needed Dilaudid Colonoscopy 6 weeks after discharge as outpatient to rule out malignancy (2) Leukocytosis Is this a current diagnosis for this admission?: Yes Plan: Likely due to diverticulitis Will treat underlying cause (3) Hyponatremia Is this a current diagnosis for this admission?: Yes Plan: Serum sodium 130, corrected for glucose 134 Likely due to volume depletion from poor oral intake Will optimally controlled blood sugar and hydrate, follow BMP (4) Diabetes Qualifiers: Diabetes mellitus type: type 2 Diabetes mellitus residential insulin use: without wet pour mixer use Diabetes mellitus complication status: without complication Qualified Code(s): E11.9 - Type 2 diabetes mellitus without complications Is this a current diagnosis for this admission?: Yes Plan: Presented with hyperglycemia Heme A1c 10.3, indicating poor glucose control. Patient on glipizide and saxagliptin as outpatient. Consider adjusting pt home regimen prior to discharge. Hold home medications. Sliding scale, Accu-Chek and hypoglycemia protocol. (5) Hyperglycemia Is this a current diagnosis for this admission?: Yes Plan: As above. (6) Hypertension Is this a current diagnosis for this admission?: Yes Plan: Home medications resumed (amlodipine milligram and lisinopril 40 mg) - Time Time Spent with patient: Less than 15 minutes Medications reviewed and adjusted accordingly: Yes Anticipated Discharge Disposition: Home, Self Care Anticipated Discharge Timeframe: within 24 hours
[2020-02-10] MEDS ORDERED: INSULIN GLARGINE,HUM.REC.ANLOG 1,000 UNIT/10 ML VIAL (PYX) SUBCUT ONE ×2 (16:30→19:15)
[2020-02-10] MEDS: PROPRANOLOL HCL 40 MG TABLET PO SCH (22:04)
[2020-02-11] MEDS: INSULIN LISPRO 100 UNIT/ML 3 ML VIAL SUBCUT SCH ×4 (00:19→17:55)
[2020-02-11] MEDS: HYDROMORPHONE HCL INJ/PF 2 MG/ML AMPULE IV PRN ×7 (00:40→22:36)
[2020-02-11] MEDS: PIPERACILLIN SODIUM/TAZOBACTAM 3.375 GM in NORMAL SALINE 100 ML IV SCH ×4 (00:41→18:00)
[2020-02-11] MEDS: NORMAL SALINE 1000 ML 1,000 ML IV PRN ×2 (00:41→13:15)
[2020-02-11] MEDS: PANTOPRAZOLE SODIUM 40 MG TABLET.DR PO SCH (08:26)
[2020-02-11] MEDS ORDERED: (PENDING PHARMACY ID) (Lisinopril [Zestril] 40 MG) PO SCH (10:00)
[2020-02-11] MEDS: ASPIRIN 81 MG TABLET, ENT COATED PO SCH (12:08)
[2020-02-11] MEDS: LISINOPRIL 10 MG TABLET PO SCH (12:10)
[2020-02-11] MEDS: AMLODIPINE BESYLATE 10 MG TABLET PO SCH (12:10)
[2020-02-11] MEDS: ENOXAPARIN SODIUM INJ 40 MG/0.4 ML DISP.SYRIN SUBCUT SCH (12:12)
[2020-02-11] MEDS: INSULIN GLARGINE,HUM.REC.ANLOG 1,000 UNIT/10 ML VIAL SUBCUT SCH (12:20)
[2020-02-11] MEDS: PROPRANOLOL HCL 40 MG TABLET PO SCH ×2 (12:21→21:34)
--- NOTE | 2020-02-11 14:09 | PDOC PROGRESS REPORT ---
Subjective Progress Note for:: 02/11/20 Subjective:: Patient had many questions about his diverticulitis and possible surgical intervention. Reason For Visit: ACUTE DIVERTICULITIS Physical Exam Vital Signs: Temp Pulse Resp BP Pulse Ox 97.8 F 99 20 142/97 H 100 02/11/20 12:02 02/11/20 12:02 02/11/20 12:02 02/11/20 12:02 02/11/20 12:02 Intake & Output 02/10/20 02/11/20 02/12/20 06:59 06:59 06:59 Intake Total 1260 3890 1000 Balance 1260 3890 1000 Weight 89.1 kg 88.8 kg General appearance: PRESENT: cooperative, mild distress, well-developed Eye exam: PRESENT: other - Malfunction of left extraocular muscles. Eye movements not coordinated.. ABSENT: EOMI Respiratory exam: PRESENT: clear to auscultation alina, symmetrical, unlabored. ABSENT: prolonged expiratory phas, rales, rhonchi, tachypnea, wheezes Cardiovascular exam: PRESENT: RRR, +S1, +S2. ABSENT: bradycardia, diastolic m urmur, irregular rhythm, systolic murmur, tachycardia GI/Abdominal exam: PRESENT: hypoactive bowel sounds, soft, tenderness - Left lower quadrant. ABSENT: distended, guarding Rectal exam: PRESENT: deferred Gentrourinary exam: ABSENT: indwelling catheter Extremities exam: ABSENT: pedal edema Musculoskeletal exam: PRESENT: ambulatory, normal inspection. ABSENT: deformity Neurological exam: PRESENT: alert, awake, oriented to person, oriented to place, oriented to time, oriented to situation. ABSENT: altered Psychiatric exam: PRESENT: appropriate affect. ABSENT: agitated, anxious Focused psych exam: ABSENT: delusional, paranoid, restlessness Skin exam: PRESENT: dry, warm. ABSENT: rash Results Laboratory Results: 02/10/20 06:00 02/10/20 06:00 02/09/20 16:04 Clean Catch Midstream Urine Culture - Final NO GROWTH 2 DAYS Impressions: Abdomen/Pelvis CT 02/09/20 20:49 IMPRESSION: 1. Acute sigmoid diverticulitis with phlegmonous changes/abscess within the sigmoid wall. 2. No free air or intraperitoneal abscess is seen. Assessment and Plan - Diagnosis (1) Diverticulitis Is this a current diagnosis for this admission?: Yes Plan: History recurrent diverticulitis. Has refused surgical intervention multiple occasions, including today and discussion with surgery. Leukocytosis of 13.3k. No other signs of systemic toxicity CT abdomen showed acute sigmoid diverticulitis with phlegmonous change/abscess measuring 3.2 x 3.6 cm but no sign of perforation Surgery on board. Note was reviewed. Continue Zosyn Kept him n.p.o. for bowel rest, plan to advance diet tomorrow as tolerated. Will control pain with as needed Dilaudid Colonoscopy 6 weeks after discharge as outpatient to rule out malignancy (2) Diabetes Qualifiers: Diabetes mellitus type: type 2 Diabetes mellitus long term care social worker insulin use: without long term care social worker use Diabetes mellitus complication status: without complication Qualified Code(s): E11.9 - Type 2 diabetes mellitus without complications Is this a current diagnosis for this admission?: Yes Plan: Presented with hyperglycemia Heme A1c 10.3, indicating poor glucose control. Patient on glipizide and saxagliptin as outpatient. Consider adjusting pt home regimen prior to discharge. Hold home medications. Sliding scale, Accu-Chek and hypoglycemia protocol. (3) Hyperglycemia Is this a current diagnosis for this admission?: Yes Plan: As above. (4) Hypertension Is this a current diagnosis for this admission?: Yes Plan: Home medications resumed (amlodipine milligram and lisinopril 40 mg) (5) Hyponatremia Is this a current diagnosis for this admission?: Yes Plan: Serum sodium 130, corrected for glucose 134 Likely due to volume depletion from poor oral intake Will optimally controlled blood sugar and hydrate, follow BMP (6) Leukocytosis Is this a current diagnosis for this admission?: Yes Plan: Likely due to diverticulitis Will treat underlying cause (7) Coronary arteriosclerosis Is this a current diagnosis for this admission?: Yes - Plan Summary Summary: 02/11/2020 Diverticulitis-reviewed with surgery. After I explained his condition to the patient he in fact is amenable to surgical intervention. Surgery will see the patient. There are multiple approaches. I did speak with Dr. English and he is going to see if interventional radiology can at least put a drain to relieve the pressure and evacuate the contents of the abscess initially with subsequent surgery. Continue current antibiotics at this time. No bowel movement since Monday. Will continue to observe and avoid any straining. Hyponatremia-we will continue to improve with correction of glucose. Sodium level is not significantly low. Diabetes mellitus-hemoglobin A1c was 10.3. Patient needs a more regimented treatment plan. Utilizing sliding scale at this time. Will resume glipizide and saxagliptin once his diet resumes. Hypertension-acceptable blood pressures. Continue to monitor closely on current regimen. Coronary artery disease-history of coronary artery disease with stent placement. The patient is not on statin therapy which is surprising considering his CAD and diabetes. Will encourage use of statin at discharge. He is on an SHERIE inhibitor already. Coronary artery disease is quite stable at this time. - Time Time Spent with patient: 25-34 minutes Medications reviewed and adjusted accordingly: Yes Anticipated Discharge Disposition: Unknown Anticipated Discharge Timeframe: Unknown-we will depend on treatment plan for her diverticular abscess
--- NOTE | 2020-02-11 18:12 | EKG REPORT ---
SEVERITY:- BORDERLINE ECG - SINUS RHYTHM PROBABLE LEFT ATRIAL ABNORMALITY : Confirmed by: Devaughn Harrison MD 11-Feb-2020 18:12:13
[2020-02-12] MEDS: INSULIN LISPRO 100 UNIT/ML 3 ML VIAL SUBCUT SCH ×5 (00:07→23:52)
[2020-02-12] MEDS: PIPERACILLIN SODIUM/TAZOBACTAM 3.375 GM in NORMAL SALINE 100 ML IV SCH ×5 (00:08→23:54)
[2020-02-12] MEDS: HYDROMORPHONE HCL INJ/PF 2 MG/ML AMPULE IV PRN ×6 (02:30→23:54)
[2020-02-12] MEDS: NORMAL SALINE 1000 ML 1,000 ML IV PRN ×2 (05:07→23:56)
[2020-02-12 06:11] LABS: ANION GAP 13 (5-19); BLOOD UREA NITROGEN 12 mg/dL (7-20); CALCIUM 9.3 mg/dL (8.4-10.2); CARBON DIOXIDE 24 mmol/L (22-30); CHLORIDE 97 mmol/L (98-107); GLUCOSE 151 mg/dL (75-110); POTASSIUM 4.5 mmol/L (3.6-5.0)
[2020-02-12] MEDS: ASPIRIN 81 MG TABLET, ENT COATED PO SCH (09:36)
[2020-02-12] MEDS: AMLODIPINE BESYLATE 10 MG TABLET PO SCH (09:36)
[2020-02-12] MEDS: ENOXAPARIN SODIUM INJ 40 MG/0.4 ML DISP.SYRIN SUBCUT SCH (09:37)
[2020-02-12] MEDS: LISINOPRIL 10 MG TABLET PO SCH (09:37)
[2020-02-12] MEDS: PROPRANOLOL HCL 40 MG TABLET PO SCH ×2 (09:37→21:18)
[2020-02-12] MEDS: INSULIN GLARGINE,HUM.REC.ANLOG 1,000 UNIT/10 ML VIAL SUBCUT SCH (09:39)
[2020-02-12] MEDS: PANTOPRAZOLE SODIUM 40 MG TABLET.DR PO SCH (09:41)
--- NOTE | 2020-02-12 15:41 | PDOC PROGRESS REPORT ---
Subjective Progress Note for:: 02/12/20 Subjective:: Feeling better. Minimal discomfort but still has a tender area left lower quadrant. He has not moved his bowels but is passing flatus. Reason For Visit: DIVERTICULAR ABSCESS Physical Exam Vital Signs: Temp Pulse Resp BP Pulse Ox 98.4 F 91 18 115/82 98 02/12/20 15:18 02/12/20 15:18 02/12/20 15:18 02/12/20 15:18 02/12/20 15:18 Intake & Output 02/11/20 02/12/20 02/13/20 06:59 06:59 06:59 Intake Total 3890 2920 Output Total 700 500 Balance 3890 2220 -500 Weight 88.8 kg 87.6 kg General appearance: PRESENT: no acute distress, cooperative, well-developed Head exam: PRESENT: atraumatic, normocephalic Eye exam: PRESENT: conjunctiva pink. ABSENT: EOMI, scleral icterus Respiratory exam: PRESENT: clear to auscultation alina, symmetrical, unlabored. ABSENT: prolonged expiratory phas, rales, rhonchi, tachypnea, wheezes Cardiovascular exam: PRESENT: RRR, +S1, +S2. ABSENT: bradycardia, diastolic murmur, irregular rhythm, systolic murmur, tachycardia GI/Abdominal exam: PRESENT: normal bowel sounds, soft, tenderness. ABSENT: distended, guarding Rectal exam: PRESENT: deferred Gentrourinary exam: ABSENT: indwelling catheter Extremities exam: ABSENT: joint swelling, pedal edema Musculoskeletal exam: PRESENT: ambulatory, normal inspection. ABSENT: deformity, dislocation Neurological exam: PRESENT: alert, awake, oriented to person, oriented to place, oriented to time, oriented to situation, CN II-XII grossly intact. ABSENT: altered Psychiatric exam: PRESENT: appropriate affect. ABSENT: agitated, anxious Focused psych exam: ABSENT: delusional, paranoid, restlessness Skin exam: PRESENT: dry, normal color, warm. ABSENT: jaundice, rash Results Laboratory Results: 02/10/20 06:00 02/12/20 05:24 02/12/20 05:24 Sodium 134.1 L Potassium 4.5 Chloride 97 L Carbon Dioxide 24 Anion Gap 13 BUN 12 Creatinine 0.74 Est GFR ( Amer) > 60 Glucose 151 H Calcium 9.3 Impressions: Abdomen/Pelvis CT 02/09/20 20:49 IMPRESSION: 1. Acute sigmoid diverticulitis with phlegmonous changes/abscess within the sigmoid wall. 2. No free air or intraperitoneal abscess is seen. Assessment and Plan - Diagnosis (1) Diverticulitis Is this a current diagnosis for this admission?: Yes (2) Diabetes Qualifiers: Diabetes mellitus type: type 2 Diabetes mellitus fpc insulin use: without fpc use Diabetes mellitus complication status: without complication Qualified Code(s): E11.9 - Type 2 diabetes mellitus without complications Is this a current diagnosis for this admission?: Yes (3) Hyperglycemia Is this a current diagnosis for this admission?: Yes (4) Hypertension Is this a current diagnosis for this admission?: Yes (5) Hyponatremia Is this a current diagnosis for this admission?: Yes (6) Leukocytosis Is this a current diagnosis for this admission?: Yes (7) Coronary arteriosclerosis Is this a current diagnosis for this admission?: Yes - Plan Summary Summary: 02/11/2020 Diverticulitis-reviewed with surgery. After I explained his condition to the patient he in fact is amenable to surgical intervention. Surgery will see the patient. There are multiple approaches. I did speak with Dr. English and he is going to see if interventional radiology can at least put a drain to relieve the pressure and evacuate the contents of the abscess initially with subsequent surgery. Continue current antibiotics at this time. No bowel movement since S unday. Will continue to observe and avoid any straining. Hyponatremia-we will continue to improve with correction of glucose. Sodium level is not significantly low. Diabetes mellitus-hemoglobin A1c was 10.3. Patient needs a more regimented treatment plan. Utilizing sliding scale at this time. Will resume glipizide and saxagliptin once his diet resumes. Hypertension-acceptable blood pressures. Continue to monitor closely on current regimen. Coronary artery disease-history of coronary artery disease with stent placement. The patient is not on statin therapy which is surprising considering his CAD and diabetes. Will encourage use of statin at discharge. He is on an SHERIE inhibitor already. Coronary artery disease is quite stable at this time. 02/12/2020 Patient is passing gas but has not had a bowel movement yet. Will discuss with surgery regarding staged approach. Possible ongoing up patient antibiotics with follow-up for elective surgery versus surgery during this admission. Patient is in fact feeling quite good and so possibly discharged with antibiotics and follow-up with Dr. English Diabetes-reasonable control of glucose. Would benefit from stricter dietary compliance. Hypertension-continue current medications at this time. Add statin therapy. - Time Time Spent with patient: 15-24 minutes Medications reviewed and adjusted accordingly: Yes Anticipated Discharge Disposition: Home, Self Care Anticipated Discharge Timeframe: within 48 hours
[2020-02-13] MEDS: PIPERACILLIN SODIUM/TAZOBACTAM 3.375 GM in NORMAL SALINE 100 ML IV SCH (05:14)
[2020-02-13] MEDS: HYDROMORPHONE HCL INJ/PF 2 MG/ML AMPULE IV PRN ×2 (05:19→08:15)
[2020-02-13] MEDS: INSULIN LISPRO 100 UNIT/ML 3 ML VIAL SUBCUT SCH (07:04)
[2020-02-13] MEDS: PANTOPRAZOLE SODIUM 40 MG TABLET.DR PO SCH (07:44)
--- NOTE | 2020-02-13 09:09 | PDOC PROGRESS REPORT ---
Subjective Progress Note for:: 02/13/20 Subjective:: feels better, had bm Reason For Visit: DIVERTICULAR ABSCESS Physical Exam Vital Signs: Temp Pulse Resp BP Pulse Ox 97.6 F 90 16 125/90 H 100 02/13/20 08:25 02/13/20 07:00 02/13/20 07:00 02/13/20 07:00 02/13/20 07:00 Intake & Output 02/12/20 02/13/20 02/14/20 06:59 06:59 06:59 Intake Total 2920 1638 Output Total 700 800 Balance 2220 838 Weight 87.6 kg 87.3 kg General appearance: PRESENT: no acute distress Head exam: PRESENT: normocephalic Eye exam: PRESENT: EOMI Ear exam: PRESENT: normal external ear exam Mouth exam: PRESENT: moist Teeth exam: PRESENT: poor dentation Neck exam: PRESENT: full ROM Respiratory exam: PRESENT: clear to auscultation alina Cardiovascular exam: PRESENT: RRR Pulses: PRESENT: normal femoral pulses, normal dorsalis pedis pul Vascular exam: PRESENT: normal capillary refill Breast: PRESENT: Normal GI/Abdominal exam: PRESENT: soft Rectal exam: PRESENT: deferred Extremities exam: PRESENT: full ROM Musculoskeletal exam: PRESENT: full ROM Neurological exam: PRESENT: alert, awake, oriented to person, oriented to place Psychiatric exam: PRESENT: appropriate affect Skin exam: PRESENT: dry Results Laboratory Results: 02/10/20 06:00 02/12/20 05:24 Impressions: Abdomen/Pelvis CT 02/09/20 20:49 IMPRESSION: 1. Acute sigmoid diverticulitis with phlegmonous changes/abscess within the sigmoid wall. 2. No free air or intraperitoneal abscess is seen. Assessment & Plan - Time Anticipated Discharge Disposition: Home, Self Care Anticipated Discharge Timeframe: within 24 hours - Plan Summary Plan Summary: Patient was admitted with perforated diverticulitis in sigmoid colon. This is the fourth or fifth bout of perforated diverticulitis for this patient. He was previously refused any surgical intervention. CT scan was reviewed and noted to have a phlegmon in the pelvis as well as some localized smaller abscesses. These are not amenable to this radiologic drainage. Patient has done better in the hospital on IV antibiotics and has had improved well. He now is having return of bowel function and having bowel movements. He is on a clear liquid diet with it being advanced to a soft diet today. It is reasonable for him to be discharged home on a course of Bactrim and Flagyl for 10 days and he will follow-up in surgical clinic. At that time we will obtain a repeat CT scan and if the phlegmon has resolved he will be a candidate for a elective laparoscopic sigmoid colectomy. I have discussed with this patient and he is in agreement with this plan. I have also discussed this with Dr. Falcon. Surgery will sign off for now please reconsult as necessary.
[2020-02-13] MEDS: ASPIRIN 81 MG TABLET, ENT COATED PO SCH (09:11)
[2020-02-13] MEDS: LISINOPRIL 10 MG TABLET PO SCH (09:11)
[2020-02-13] MEDS: AMLODIPINE BESYLATE 10 MG TABLET PO SCH (09:12)
[2020-02-13] MEDS: PROPRANOLOL HCL 40 MG TABLET PO SCH (09:12)
[2020-02-13] MEDS: INSULIN GLARGINE,HUM.REC.ANLOG 1,000 UNIT/10 ML VIAL SUBCUT SCH (09:13)
[2020-02-13] MEDS: ENOXAPARIN SODIUM INJ 40 MG/0.4 ML DISP.SYRIN SUBCUT SCH (09:17)
[2020-02-13 09:51] LABS: ABSOLUTE MONOCYTES (AUTO) 1.9 10^3/uL (0.1-1.4); ABSOLUTE NEUT (AUTO) 9.5 10^3/uL (1.7-8.2); BASOPHILS % (AUTO) 0.3 % (0-2); EOSINOPHILS % (AUTO) 0.4 % (0-6); HEMATOCRIT 49.1 % (37.9-51.0); HEMOGLOBIN 17.1 g/dL (13.5-17.0); MEAN CORPUSCULAR HEMOGLOBIN 30.5 pg (27.0-33.4); MEAN CORPUSCULAR HGB CONC 34.8 g/dL (32.0-36.0); MEAN CORPUSCULAR VOLUME 88 fl (80-97); MONOCYTES % (AUTO) 15.4 % (3-13); PLATELET COUNT 211 10^3/uL (150-450); RED BLOOD COUNT 5.62 10^6/uL (4.35-5.55); RED CELL DISTRIBUTION WIDTH 13.5 % (11.5-14.0); SEGMENTED NEUTROPHILS % (AUTO) 75.9 % (42-78); TOTAL CELLS COUNTED % (AUTO) 100 %; WHITE BLOOD COUNT 12.5 10^3/uL (4.0-10.5)
--- NOTE | 2020-02-13 11:36 | PDOC DISCHARGE SUMMARY ---
Impression - Admit/DC Date/PCP Admission Date/Primary Care Provider: 02/12/20 06:[facility] Discharge Date: 02/13/20 - Discharge Diagnosis (1) Diverticulitis Is this a current diagnosis for this admission?: Yes (2) Diabetes Is this a current diagnosis for this admission?: Yes (3) Hyperglycemia Is this a current diagnosis for this admission?: Yes (4) Hypertension Is this a current diagnosis for this admission?: Yes (5) Hyponatremia Is this a current diagnosis for this admission?: Yes (6) Leukocytosis Is this a current diagnosis for this admission?: Yes (7) Coronary arteriosclerosis Is this a current diagnosis for this admission?: Yes - Assessment Summary: 02/11/2020 Diverticulitis-reviewed with surgery. After I explained his condition to the patient he in fact is amenable to surgical intervention. Surgery will see the patient. There are multiple approaches. I did speak with Dr. English and he is going to see if interventional radiology can at least put a drain to relieve the pressure and evacuate the contents of the abscess initially with subsequent surgery. Continue current antibiotics at this time. No bowel movement since Monday. Will continue to observe and avoid any straining. Hyponatremia-we will continue to improve with correction of glucose. Sodium level is not significantly low. Diabetes mellitus-hemoglobin A1c was 10.3. Patient needs a more regimented treatment plan. Utilizing sliding scale at this time. Will resume glipizide and saxagliptin once his diet resumes. Hypertension-acceptable blood pressures. Continue to monitor closely on current regimen. Coronary artery disease-history of coronary artery disease with stent placement. The patient is not on statin therapy which is surprising considering his CAD and diabetes. Will encourage use of statin at discharge. He is on an SHERIE inhibitor already. Coronary artery disease is quite stable at this time. 02/12/2020 Patient is passing gas but has not had a bowel movement yet. Will discuss with surgery regarding staged approach. Possible ongoing up patient antibiotics with follow-up for elective surgery versus surgery during this admission. Patient is in fact feeling quite good and so possibly discharged with antibiotics and follow-up with Dr. English Diabetes-reasonable control of glucose. Would benefit from stricter dietary compliance. Hypertension-continue current medications at this time. Add statin therapy. - Additional Information Resuscitation Status: Full Code Discharge Diet: Cardiac, Diabetic, Other (Comments) - Full liquid advance to soft mechanical Discharge Activity: Balance Activity w/Rest [facility] [[facility]] - Follow up as needed Prescriptions: Sulfamethoxazole/Trimethoprim [Bactrim Ds Tablet] 1 each PO BID #14 tablet Trazodone HCl [Desyrel 50 mg Tablet] 50 mg PO QHS PRN #30 tablet PRN Reason: Sleep Or Insomnia May Repeat Metronidazole [Flagyl 500 mg Tablet] 500 mg PO TID #21 tablet Metformin HCl 500 mg PO BID 30 Days #60 tablet Home Medications: Amlodipine Besylate [Norvasc 10 mg Tablet] 10 mg PO DAILY 03/13/18 Glipizide [Glipizide Xl] 10 mg PO BID 03/13/18 Lisinopril [Zestril] 40 mg PO DAILY 03/13/18 Pantoprazole Sodium 40 mg PO DAILY 03/13/18 Aspirin [Ecotrin 81 mg EC Tablet] 81 mg PO DAILY 02/10/20 Cholecalciferol (Vitamin D3) [Vitamin D3] 125 mcg PO DAILY 02/10/20 Propranolol HCl [Inderal 40 mg Tablet] 80 mg PO BID 02/10/20 Metformin HCl 500 mg PO BID 30 Days #60 tablet 02/13/20 Metronidazole [Flagyl 500 mg Tablet] 500 mg PO TID #21 tablet 02/13/20 Sulfamethoxazole/Trimethoprim [Bactrim Ds Tablet] 1 each PO BID #14 tablet 02/13/20 Trazodone HCl [Desyrel 50 mg Tablet] 50 mg PO QHS PRN #30 tablet 02/13/20 History of Present Illiness History of Present Illness: RIK ARIZA is a 59 year old male with a history of hypertension and diabetes who presents with a 2 days duration of left lower quadrant abdominal pain which he describes as cramping, 10/10 in intensity at its worst, nonradiating with no clear aggravating or relieving factor. Patient also endorses 2 episodes of vomiting of ingested matter this afternoon. He states that he was treated for diverticulitis about 6 months ago after he presented with similar symptoms. He denies fever, chills, dizziness/lightheadedness, diarrhea, hematemesis, melena or hematochezia. He reports excessive thirst and he states that he feels like his mouth is dry. He denies any dysuria, frequency of urination, urgency. He denies any cough, chest pain, shortness of breath, palpitations. Hospital Course Hospital Course: 1) Diverticulitis Is this a current diagnosis for this admission?: Yes (2) Diabetes Qualifiers: Diabetes mellitus type: type 2 Diabetes mellitus jail insulin use: without intermodal dispatcher use Diabetes mellitus complication status: without complication Qualified Code(s): E11.9 - Type 2 diabetes mellitus without complications Is this a current diagnosis for this admission?: Yes (3) Hyperglycemia Is this a current diagnosis for this admission?: Yes (4) Hypertension Is this a current diagnosis for this admission?: Yes (5) Hyponatremia Is this a current diagnosis for this admission?: Yes (6) Leukocytosis Is this a current diagnosis for this admission?: Yes (7) Coronary arteriosclerosis Is this a current diagnosis for this admission?: Yes - Plan Summary Summary: 02/11/2020 Diverticulitis-reviewed with surgery. After I explained his condition to the patient he in fact is amenable to surgical intervention. Surgery will see the patient. There are multiple approaches. I did speak with Dr. English and he is going to see if interventional radiology can at least put a drain to relieve the pressure and evacuate the contents of the abscess initially with subsequent surgery. Continue current antibiotics at this time. No bowel movement since Monday. Will continue to observe and avoid any straining. Hyponatremia-we will continue to improve with correction of glucose. Sodium level is not significantly low. Diabetes mellitus-hemoglobin A1c was 10.3. Patient needs a more regimented treatment plan. Utilizing sliding scale at this time. Will resume glipizide and saxagliptin once his diet resumes. Hypertension-acceptable blood pressures. Continue to monitor closely on current regimen. Coronary artery disease-history of coronary artery disease with stent placement. The patient is not on statin therapy which is surprising considering his CAD and diabetes. Will encourage use of statin at discharge. He is on an SHERIE inhibitor already. Coronary artery disease is quite stable at this time. 02/12/2020 Patient is passing gas but has not had a bowel movement yet. Will discuss with surgery regarding staged approach. Possible ongoing up patient antibiotics with follow-up for elective surgery versus surgery during this admission. Patient is in fact feeling quite good and so possibly discharged with antibiotics and follow-up with Dr. English Diabetes-reasonable control of glucose. Would benefit from stricter dietary compliance. Hypertension-continue current medications at this time. Add statin therapy. 02/13/2020- White blood cell count is slightly lower. Discussed with surgery. Will discharge on oral antibiotics and follow-up with surgery in 7 to 10 days. Advance diet from full liquid to mechanical soft as tolerated Physical Exam Vital Signs: Temp Pulse Resp BP Pulse Ox 97.6 F 90 16 125/90 H 100 02/13/20 08:25 02/13/20 07:00 02/13/20 07:00 02/13/20 07:00 02/13/20 07:00 Intake & Output 02/12/20 02/13/20 02/14/20 06:59 06:59 06:59 Intake Total 2920 1638 Output Total 700 800 Balance 2220 838 Weight 87.6 kg 87.3 kg General appearance: PRESENT: no acute distress, cooperative, well-developed Respiratory exam: PRESENT: clear to auscultation alina, symmetrical, unlabored. ABSENT: rales, rhonchi, tachypnea, wheezes Cardiovascular exam: PRESENT: RRR, +S1, +S2. ABSENT: bradycardia, diastolic murmur, irregular rhythm, systolic murmur, tachycardia GI/Abdominal exam: PRESENT: normal bowel sounds, soft. ABSENT: distended, guarding, tenderness Rectal exam: PRESENT: deferred Gentrourinary exam: ABSENT: indwelling catheter Neurological exam: PRESENT: alert, awake, oriented to person, oriented to place, oriented to time, oriented to situation, CN II-XII grossly intact - Except extraocular muscles. ABSENT: altered Psychiatric exam: PRESENT: appropriate affect. ABSENT: agitated, anxious Focused psych exam: ABSENT: delusional, paranoid, restlessness Results Laboratory Results: WBC 12.5 10^3/uL (4.0-10.5) H 02/13/20 09:22 RBC 5.62 10^6/uL (4.35-5.55) H 02/13/20 09:22 Hgb 17.1 g/dL (13.5-17.0) H 02/13/20 09:22 Hct 49.1 % (37.9-51.0) 02/13/20 09:22 MCV 88 fl (80-97) 02/13/20 09:22 MCH 30.5 pg (27.0-33.4) 02/13/20 09:22 MCHC 34.8 g/dL (32.0-36.0) 02/13/20 09:22 RDW 13.5 % (11.5-14.0) 02/13/20 09:22 Plt Count 211 10^3/uL (150-450) 02/13/20 09:22 Lymph % (Auto) 8.0 % (13-45) L 02/13/20 09:22 [place] % (Auto) 15.4 % (3-13) H 02/13/20 09:22 Eos % (Auto) 0.4 % (0-6) 02/13/20 09:22 Baso % (Auto) 0.3 % (0-2) 02/13/20 09:22 Absolute Neuts (auto) 9.5 10^3/uL (1.7-8.2) H 02/13/20 09:22 Absolute Lymphs (auto) 1.0 10^3/uL (0.5-4.7) 02/13/20 09:22 Absolute Monos (auto) 1.9 10^3/uL (0.1-1.4) H 02/13/20 09:22 Absolute Eos (auto) 0.0 10^3/uL (0.0-0.6) 02/13/20 09:22 Absolute Basos (auto) 0.0 10^3/uL (0.0-0.2) 02/13/20 09:22 Seg Neutrophils % 75.9 % (42-78) 02/13/20 09:22 Sodium 134.1 mmol/L (137-145) L 02/12/20 05:24 Potassium 4.5 mmol/L (3.6-5.0) 02/12/20 05:24 Chloride 97 mmol/L (98-107) L 02/12/20 05:24 Carbon Dioxide 24 mmol/L (22-30) 02/12/20 05:24 Anion Gap 13 (5-19) 02/12/20 05:24 BUN 12 mg/dL (7-20) 02/12/20 05:24 Creatinine 0.74 mg/dL (0.52-1.25) 02/12/20 05:24 Est GFR ( Amer) > 60 (>60) 02/12/20 05:24 Est GFR (MDRD) Non-Af > 60 (>60) 02/12/20 05:24 Glucose 151 mg/dL (75-110) H 02/12/20 05:24 POC Glucose 179 mg/dL (70-110) H 02/13/20 11:16 Hemoglobin A1c % 10.3 % (4.7-6.0) H 02/10/20 06:00 Lactic Acid 1.1 mmol/L (0.7-2.1) 02/09/20 23:04 Calcium 9.3 mg/dL (8.4-10.2) 02/12/20 05:24 Total Bilirubin 1.3 mg/dL (0.2-1.3) 02/09/20 16:04 Direct Bilirubin 0.4 mg/dL (0.0-0.4) 02/09/20 16:04 Neonat Total Bilirubin Not Reportable 02/09/20 16:04 Neonat Direct Bilirubin Not Reportable 02/09/20 16:04 Neonat Indirect Bili Not Reportable 02/09/20 16:04 AST 27 U/L (17-59) 02/09/20 16:04 ALT 48 U/L (<50) 02/09/20 16:04 Alkaline Phosphatase 104 U/L (38-126) 02/09/20 16:04 Total Protein 6.8 g/dL (6.3-8.2) 02/09/20 16:04 Albumin 4.3 g/dL (3.5-5.0) 02/09/20 16:04 Urine Color YELLOW 02/09/20 16:04 Urine Appearance CLEAR 02/09/20 16:04 Urine pH 5.0 (5.0-9.0) 02/09/20 16:04 Ur Specific Labelle 1.035 02/09/20 16:04 Urine Protein 30 mg/dL (NEGATIVE) H 02/09/20 16:04 Urine Glucose (UA) >=500 mg/dL (NEGATIVE) H 02/09/20 16:04 Urine Ketones TRACE mg/dL (NEGATIVE) H 02/09/20 16:04 Urine Blood SMALL (NEGATIVE) H 02/09/20 16:04 Urine Nitrite NEGATIVE (NEGATIVE) 02/09/20 16:04 Urine Bilirubin NEGATIVE (NEGATIVE) 02/09/20 16:04 Urine Urobilinogen 2.0 mg/dL (<2.0) H 02/09/20 16:04 Ur Leukocyte Esterase NEGATIVE (NEGATIVE) 02/09/20 16:04 Urine WBC (Auto) 1 /HPF 02/09/20 16:04 Urine RBC (Auto) 1 /HPF 02/09/20 16:04 Urine Mucus (Auto) RARE /LPF 02/09/20 16:04 Urine Ascorbic Acid NEGATIVE (NEGATIVE) 02/09/20 16:04 Impressions: Abdomen/Pelvis CT 02/09/20 20:49 IMPRESSION: 1. Acute sigmoid diverticulitis with phlegmonous changes/abscess within the sigmoid wall. 2. No free air or intraperitoneal abscess is seen. Plan Health Concerns: Recurrent diverticular disease now with abscess Plan of Treatment: Complete course of oral antibiotics as an outpatient and follow-up with surgery. Plan for elective surgical intervention. Goals: Removal of diseased portion of sigmoid colon Time Spent: Greater than 30 Minutes Stroke Is this a Stroke Patient?: No Acute Heart Failure Is this a Heart Failure Patient?: No
[2020-02-13 11:38] VITALS: BP 118/90
== END 2020-02-13 12:10 | disposition home or self-care (01) | DRG 392 ==
LOC: ER 15:46 → EH 02-10 00:15 → INTOOBSV 02-10 00:15 → 4S 02-10 01:41 → OBSVTOIN 02-12 06:47
PROVIDERS: ADMIT Student in an Organized Health Care Education/Training Program; ATTEND Hospitalist
DX: K57.20 Diverticulitis of large intestine with perforation and abscess without bleeding (principal); E87.1 Hypo-osmolality and hyponatremia; E11.65 Type 2 diabetes mellitus with hyperglycemia; I10 Essential (primary) hypertension; I25.10 Atherosclerotic heart disease of native coronary artery without angina pectoris; F10.10 Alcohol abuse, uncomplicated; K21.9 Gastro-esophageal reflux disease without esophagitis; Z95.5 Presence of coronary angioplasty implant and graft; Z87.891 Personal history of nicotine dependence; Z88.6 Allergy status to analgesic agent; Z88.1 Allergy status to other antibiotic agents; Z91.040 Latex allergy status; Z79.02 Long term (current) use of antithrombotics/antiplatelets; Z79.891 Long term (current) use of opiate analgesic; Z79.899 Other long term (current) drug therapy
CPT/HCPCS: 36415; 74177; 80048; 80053; 81001; 82962; 83036; 83605; 85025; 87040; 87077; 87086; 87186; 93005; 93010; 96361; 96365; 96375; 96376; 99285; G0378; J1170; J1650; J1815; J2405; J2543; J3490; J7030; J7050; S0119

== ENCOUNTER → 2020-03-05 | Outpatient (CLI) | payer MEDICARE ==
--- NOTE | 2020-03-05 11:29 | RADIOLOGY REPORT (SQ) ---
EXAM DESCRIPTION: CT ABD/PELVIS WITH IV ORAL IMAGES COMPLETED DATE/TIME: 03/05/2020 8:33 am REASON FOR STUDY: K57.92 DVTRCLI OF INTEST, PART UNSP, W/O PERF OR ABSCESS W/O BLEED K57.92 DVTRCLI OF INTEST, PART UNSP, W/O PERF OR ABSCESS W/O COMPARISON: None. TECHNIQUE: CT scan of the abdomen and pelvis performed using helical scanning technique with dynamic intravenous contrast injection. Oral contrast. Images reviewed with lung, soft tissue, and bone win dows. Reconstructed coronal and sagittal MPR images reviewed. Delayed images for evaluation of the ur inary system also acquired. All images stored on PACS. All CT scanners at this facility use dose modulation, iterative reconstruction, and/or weight based d osing when appropriate to reduce radiation dose to as low as reasonably achievable (ALARA). [facility]: Dose Right [facility]: CareDose [facility]: Dose Right [facility]: Teradose 4D [facility]: [employer] CONTRAST TYPE AND DOSE: contrast/concentration: Isovue 350.00 mmol/ml; Total Contrast Delivered: 95. 0 ml; Total Saline Delivered: 37.0 ml RENAL FUNCTION: BUN 12 creatinine 0.74 RADIATION DOSE: CT Rad equipment meets quality standard of care and radiation dose reduction techniq ues were employed. CTDIvol: 13.6 - 13.6 mGy. DLP: 1472 mGy-cm.. LIMITATIONS: None. FINDINGS: LOWER CHEST: No significant findings. No nodules or infiltrates. LIVER: The liver is diffusely hypoattenuating. No masses. SPLEEN: Splenomegaly. The splenic index is 840. PANCREAS: No masses. No significant calcifications. No adjacent inflammation or peripancreatic fluid collections. Pancreatic duct not dilated. GALLBLADDER: No identified stones by CT criteria. No inflammatory changes to suggest cholecystitis. ADRENAL GLANDS: No significant masses or asymmetry. RIGHT KIDNEY AND URETER: No solid masses. No significant calcifications. No hydronephrosis or hyd roureter. LEFT KIDNEY AND URETER: No solid masses. No significant calcifications. No hydronephrosis or hydr oureter. AORTA AND VESSELS: No aneurysm. No dissection. Renal arteries, SMA, celiac without stenosis. RETROPERITONEUM: No retroperitoneal adenopathy, hemorrhage or masses. BOWEL AND PERITONEAL CAVITY: Extensive sigmoid diverticulosis with no associated acute inflammation. Diverticula are seen arising from the cecum. APPENDIX: Normal. PELVIS: There is some thickening of the wall of the bladder. ABDOMINAL WALL: No masses. No hernias. BONES: No significant or acute findings. OTHER: No other significant finding. IMPRESSION: 1. Hepatic steatosis. 2. Splenomegaly. 3. Extensive diverticulosis coli with no evidence of diverticulitis. 4. There is thickening of the bladder wall. Correlate for cystitis. TECHNICAL DOCUMENTATION: JOB ID: [id number] Quality ID # [id number]: Final reports with documentation of one or more dose reduction techniques (e.g., Au tomated exposure control, adjustment of the mA and/or kV according to patient size, use of iterative reconstruction technique) 2010 [employer]- All Rights Reserved Reading location - IP/workstation name: [email or web address]
== END ==
LOC: RAD 07:54
PROVIDERS: ATTEND Surgery
DX: K57.92 Diverticulitis of intestine, part unspecified, without perforation or abscess without bleeding (principal); K76.0 Fatty (change of) liver, not elsewhere classified; R16.1 Splenomegaly, not elsewhere classified
CPT/HCPCS: 74177

== ENCOUNTER 2020-04-02 10:06 | Day surgery (SDC) | payer MEDICARE ==
[2020-03-30 09:44] LABS: HEMOGLOBIN 16.2 g/dL (13.5-17.0); MEAN CORPUSCULAR HEMOGLOBIN 30.5 pg (27.0-33.4); MEAN CORPUSCULAR HGB CONC 34.4 g/dL (32.0-36.0); MEAN CORPUSCULAR VOLUME 89 fl (80-97); PLATELET COUNT 172 10^3/uL (150-450); RED BLOOD COUNT 5.29 10^6/uL (4.35-5.55); RED CELL DISTRIBUTION WIDTH 14.9 % (11.5-14.0); WHITE BLOOD COUNT 7.3 10^3/uL (4.0-10.5)
[~2020-04-02 10:06] MED LIST changes: -CEFAZOLIN 2 GM/D5W RTU 2 GM/50 ML RTUPB IV PRN; -LIDOCAINE 0.5% INJ-PF (5 MG/ML) 50 ML SDV SUBCUT PRN; -LIDOCAINE 1%/EPINEPHRINE INJ 20 ML VIAL ONE
[2020-04-02] MEDS ORDERED: LIDOCAINE 2% INJ-PF (20 MG/ML) 10 ML AMPUL ONE (12:22)
[2020-04-02] MEDS ORDERED: PROPOFOL INJ 200 MG/20 ML VIAL IV ONE ×4 (12:22→13:36)
--- NOTE | 2020-04-02 13:51 | Operative Report ---
Nonrecallable Operative Report DATE OF SURGERY: 04/02/20 PREOPERATIVE DIAGNOSIS: recurrent diverticulitis POSTOPERATIVE DIAGNOSIS: same OPERATION: Colonoscopy. SURGEON: ADRIÁN BHATTI ANESTHESIA: Moderate Sedation TISSUE REMOVED OR ALTERED: None no biopsies COMPLICATIONS: None INTRAOPERATIVE FINDINGS: See note PROCEDURE: Patient was brought to the operating awake alert in stable condition placed on the operative left lateral decubitus position and given IV sedation. After appropriate timeout and site verification the procedure commenced. Lupus colonoscope was passed into the patient's rectum and traversed to rectum to the sigmoid colon as we traversed the sigmoid colon we noted multiple diverticula. At approximately 40 cm appeared to be a narrowing however the scope was able to be passed by that area into the descending colon we then continued to continue to the transverse colon we able to traverse the transverse colon to the hepatic flexure descending colon and cecum. There was no evidence of any mucosal abnormalities or polyps noted. We then slowly withdrew the scope through the ascending colon which appeared to be normal as well as the hepatic flexure and transverse colon. Upon reaching the splenic flexure we started noting multiple diverticuli at about 60 cm from the anal verge at 40 cm from the anal verge we noted narrowing of the colon and poor distention there was moderate mount of stool within the proximal colon. The scope was then slowly withdrawn. Impression moderate to severe diverticulosis. Narrowing a minute or mild stricture at about 40 cm. No evidence of any mucosal abnormalities masses or polyps. Patient will follow-up in surgical clinic in 7 to 10 days.
[2020-04-02] MEDS ORDERED: ONDANSETRON HCL INJ/PF 4 MG/2 ML SDV ONE (14:40)
[2020-04-02] MEDS ORDERED: HYDROMORPHONE HCL INJ/PF 2 MG/ML AMPULE ONE (14:40)
[2020-04-02] MEDS ORDERED: ONDANSETRON HCL INJ/PF 4 MG/2 ML SDV IV ONE (14:45)
[2020-04-02] MEDS ORDERED: HYDROMORPHONE HCL INJ/PF 2 MG/ML AMPULE IV ONE (15:00)
--- NOTE | 2020-04-02 15:32 | RADIOLOGY REPORT (SQ) ---
EXAM DESCRIPTION: KUB/ABDOMEN (SINGLE VIEW) IMAGES COMPLETED DATE/TIME: 04/02/2020 3:08 pm REASON FOR STUDY: POST-PROCEDURE K63.1 PERFORATION OF INTESTINE (NONTRAUMATIC) COMPARISON: None. NUMBER OF VIEWS: One view. TECHNIQUE: Supine radiographic image of the abdomen acquired. LIMITATIONS: None. FINDINGS: BOWEL GAS PATTERN: Status post procedure. Mild to moderate gaseous distention from the c ecum to the splenic flexure of the colon, likely related to prior procedure. Gas is identified throu ghout the colon and in the rectum. CALCIFICATIONS: No suspicious calcifications. SOFT TISSUES: No gross mass or suggestion of organomegaly. HARDWARE: Prior hernia repair with multiple surgical anchors. BONES: No acute fracture. No worrisome bone lesions. OTHER: No other significant finding. IMPRESSION: 1. Status post procedure with mild to moderate gaseous distention from the cecum to the splenic flexure of the colon. TECHNICAL DOCUMENTATION: JOB ID: [id number] 2010 [employer]- All Rights Reserved Reading location - IP/workstation name: [email or web address]
--- NOTE | 2020-04-02 15:33 | RADIOLOGY REPORT (SQ) ---
EXAM DESCRIPTION: CHEST SINGLE VIEW IMAGES COMPLETED DATE/TIME: 04/02/2020 3:08 pm REASON FOR STUDY: POST-PROCEDURE COMPARISON: 03/07/2018 EXAM PARAMETERS: NUMBER OF VIEWS: One view. TECHNIQUE: Single frontal radiographic view of the chest acquired. RADIATION DOSE: NA LIMITATIONS: None. FINDINGS: LUNGS AND PLEURA: Status post procedure. No free air under the diaphragms. A portion of the right costophrenic sulcus has been cut off of the obtained image. No acute pulmonary findings. No pneumothorax or pleural effusion. MEDIASTINUM AND HILAR STRUCTURES: No masses. Contour normal. HEART AND VASCULAR STRUCTURES: Heart normal in size. Normal vasculature. BONES: No acute findings. HARDWARE: None in the chest. OTHER: No other significant finding. IMPRESSION: 1. Examination slightly limited as above. Status post procedure, no free air under the diaphragms. 2. No acute pulmonary findings. TECHNICAL DOCUMENTATION: JOB ID: [id number] 2010 [employer]- All Rights Reserved Reading location - IP/workstation name: [email or web address]
[2020-04-02 16:05] VITALS: BP 148/91
== END 2020-04-02 16:00 | disposition home or self-care (01) ==
LOC: OROUT 10:06
PROVIDERS: ATTEND Surgery
DX: K57.30 Diverticulosis of large intestine without perforation or abscess without bleeding (principal); K57.32 Diverticulitis of large intestine without perforation or abscess without bleeding; E11.9 Type 2 diabetes mellitus without complications; I10 Essential (primary) hypertension; I25.10 Atherosclerotic heart disease of native coronary artery without angina pectoris; Z20.828 Contact with and (suspected) exposure to other viral communicable diseases; E66.9 Obesity, unspecified; K21.9 Gastro-esophageal reflux disease without esophagitis; M06.9 Rheumatoid arthritis, unspecified; Z79.899 Other long term (current) drug therapy; Z79.84 Long term (current) use of oral hypoglycemic drugs; Z87.891 Personal history of nicotine dependence; Z95.5 Presence of coronary angioplasty implant and graft
CPT/HCPCS: 45378; 36415; 82962; 85027; 71045; 74018; 00811; U0003; J1170; J2405; J2704; J3490; C9803; 811; 87635